=== PATIENT | female | born 1945 | race Caucasian/White ===

== ENCOUNTER 2017-07-09 13:01 | Outpatient (CLI) | payer MEDICARE ==
--- NOTE | 2017-07-09 14:11 | MMO ---
BILATERAL SCREENING MAMMOGRAM: DATE: 07/09/17 HISTORY: 72-year-old female for screening mammography. COMPARISON: 06/18/16, 06/13/15, 06/09/14. FINDINGS: Bilateral MLO and CC views of the breasts show scattered fibroglandular breast tissue. Benign-appeari ng calcifications are seen in both breasts. There is no evidence of suspicious mass, suspicious clust er of microcalcifications, or area of architectural distortion. Interpretation of this mammogram was performed with the assistance of computer-aided detection. IMPRESSION: BIRADS 2: Benign Finding(s) Annual screening mammography is recommended. POS: [facility]
== END 2017-07-09 13:02 | disposition home or self-care (01) ==
LOC: SCSMAMMO 13:01
PROVIDERS: ATTEND Family Medicine
DX: Z12.31 Encounter for screening mammogram for malignant neoplasm of breast (principal)
CPT/HCPCS: 77067; G0202

== ENCOUNTER 2017-07-15 21:24 | Observation (INO) | payer MEDICARE ==
[2017-07-15] MEDS ORDERED: Ondansetron HCl/PF 4 MG/2 ML Vial ONE (21:45)
[2017-07-15 22:16] LABS: ALT (SGPT) 51 U/L (8-55); AST (SGOT) 58 U/L (5-34); Albumin 4.5 g/dL (3.4-4.8); Alkaline Phosphatase 74 U/L (40-150); Anion Gap 21 mmol/L (10-20); BUN (Urea Nitrogen) 23 mg/dL (9.8-20.1); Bilirubin, Total 1.1 mg/dL (0.2-1.2); Calc. Creatinine Clearance 0 mL/min (70-130); Calcium 10.7 mg/dL (7.8-10.44); Carbon Dioxide 21 mmol/L (23-31); Chloride 100 mmol/L (98-107); Estimated GFR-MDRD 44; Globulin 2.7 g/dL (2.4-3.5); Glucose 157 mg/dL (83-110); Lipase 24 U/L (8-78); Potassium 4.1 mmol/L (3.5-5.1); Protein, Total 7.2 g/dL (6.0-8.3); Sodium 138 mmol/L (136-145)
[2017-07-15 22:21] LABS: Band 7 % (5-11); Hemoglobin 15.1 g/dL (12.0-16.0); Lymphocytes 5 % (21-51); MDiff Complete? YES; Mean Corpuscular HGB CONC 30.4 g/dL (32.0-36.0); Mean Corpuscular Hemoglobin 28.1 pg (27.0-31.0); Mean Corpuscular Volume 92.2 fl (81.0-99.0); Mean Platelet Volume 7.5 fL (7.4-10.4); Monocytes 3 % (0-10); Neutrophil 85 % (42-75); Platelet Count 286 thou/uL (130-400); Red Blood Cell (RBC) Count 5.38 mill/uL (4.20-5.40); White Blood Cell (WBC) Count 16.8 thou/uL (4.8-10.8)
--- NOTE | 2017-07-15 23:22 | CT ---
CT OF THE ABDOMEN AND PELVIS 07/15/17 PROVIDED CLINICAL HISTORY: Nausea and vomiting. FINDINGS: Comparison 09/21/08. The visualized lung bases are free of significant opacity. The solid abdominal organs are suboptimally evaluated without IV contrast but demonstrates an unremar kable unenhanced CT appearance. A mild hiatal hernia is seen. There is diffusely mildly ectatic small bowel which is diffusely fluid filled. There is no evidence f or a focal transition point. There is fluid density seen within the colon as well. There is no inflam matory fat stranding, lymphadenopathy, or free air apparent. There is trace free fluid present within the pelvis. The osseous structures demonstrate no concerning osteoblastic or osteolytic lesions. Degenerative changes are seen. IMPRESSION: Predominantly diffusely ectatic fluid filled small bowel without clear transition zone, and with flui d density seen within the colon, is most suggestive of a enterocolitis. POS: [facility]
[2017-07-15 23:29] LABS: Bilirubin Negative (Negative); Blood, Urine Moderate (Negative); Clarity Clear (Clear); Glucose, Urine (Dipstick) Negative (Negative); Leukocyte Trace (Negative); Nitrite Negative (Negative); Protein, Urine (Dipstick) Negative (Neg-Trace); Specific Gravity, Urine 1.015 (1.005-1.030); Urobilinogen 0.2 mg/dL (0.2-1.0)
[2017-07-15] MEDS ORDERED: Piperacillin/Tazobactam 3.375 GM VIAL ONE (23:41)
[2017-07-15] MEDS ORDERED: Sodium Chloride 0.9% 100 ML ONE (23:41)
[2017-07-15 23:42] LABS: Bacteria/HPF 2+ HPF (None Seen); Hyaline Casts/LPF 0-3 HYALINE CAST LPF (0-3 Hyaline); Squamous Epithelial 0-3 HPF (0-3); WBC/HPF 0-3 HPF (0-3)
[2017-07-15] MEDS ORDERED: Acetaminophen 500 MG TAB ONE (23:49)
[2017-07-16] MEDS ORDERED: Ondansetron HCl/PF 4 MG/2 ML Vial ONE (03:55)
[2017-07-16] MEDS ORDERED: Piperacillin/Tazobactam 3.375 GM VIAL ONE (06:14)
[2017-07-16] MEDS ORDERED: Sodium Chloride 0.9% 100 ML ONE (06:15)
[2017-07-16] MEDS ORDERED: HYDROcodone/Acetaminophen 10/325 mg Tablet PO PRN (09:34)
[2017-07-16] MEDS ORDERED: HYDROcodone/Acetaminophen 5/325 mg Tablet PO PRN (09:34)
[2017-07-16] MEDS ORDERED: Mag-Al 1200 mg/1200 mg/30 ML UDCUP PO PRN (09:34)
[2017-07-16] MEDS ORDERED: hydrALAZINE 20 MG/ML VIAL SLOW IVP PRN (09:34)
[2017-07-16] MEDS ORDERED: Acetaminophen 325 MG TAB PO PRN (09:34)
[2017-07-16] MEDS ORDERED: Ondansetron HCl/PF 4 MG/2 ML Vial IVP PRN (09:34)
[2017-07-16] MEDS: NS 0.9% w/ 20 MEQ KCL 1,000 ML/1,000 ML BAG IV SCH ×2 (10:50→20:20)
--- NOTE | 2017-07-16 11:07 | HP ---
PRIMARY CARE PHYSICIAN: Valentino Chávez M.D. CHIEF COMPLAINT: Nausea and vomiting. HISTORY OF PRESENT ILLNESS: Ms. Sow is a pleasant 72-year-old female that has a history of hyper tension and gastroesophageal reflux disease. She was in her usual state of health until yesterday. She says around noon she thought she was coming down with flu-like symptoms or the flu. She says she felt feverish and was having cough which was nonproductive. Then, she began vomiting and could not stop. She also noted some aching as well and some cramping abdominal pain. She says she was vomitin g so much that she thought she was not going to be able to make it at home and then she began having diarrhea. For this reason, she came to the ER for evaluation. A CT scan of the abdomen was done and it was essentially negative and showed some findings consistent with enteritis and she is being plac ed in observation for this. She also complained of some low-grade fever as well as some chills. She says she has had this before in the past. She says usually she will get it periodically and no one else in the family will get sick. She denies any sick contacts and they all went out to eat at [facility], but no one else in the family was sick. REVIEW OF SYSTEMS: Constitutional: Again, subjective fever as well as chills, no night sweats, no w eight loss. HEENT: No headaches, no dizziness, no visual changes, no sore throat, no rhinorrhea, no neck pain, no adenopathy. Pulmonary: No hemoptysis, no cough, no wheezing. Cardiovascular: No ch est pain or shortness of breath, no PND, no orthopnea. Gastrointestinal: As the history of present illness with the addition of no hematemesis and no melena. Genitourinary: No urinary frequency, hem aturia or hesitancy. Neurologic: No focal weakness, numbness, no seizures. Psychiatric: No sympto ms of anxiety or depression. Skin and Integument: No skin changes. No rash. PAST MEDICAL HISTORY: Significant for hypertension, degenerative joint disease, gastroesophageal ref lux disease, and obesity. PAST SURGICAL HISTORY: She has had a right total knee replacement. ALLERGIES: FLAGYL, LEVAQUIN, MACROBID, SULFA and HIBICLENS. FAMILY HISTORY: Significant for colon cancer and heart disease. SOCIAL HISTORY: She is , has 4 children. She is a nonsmoker, nondrinker. CODE STATUS: FULL CODE. MEDICATIONS: Include cephalexin, Meloxicam p.r.n., amlodipine 5 mg daily, aspirin 81 mg daily, Caltr ate 1200 mg at bedtime, [place] 5/325 q.6 p.r.n., lactobacillus 1 capsule daily, lisinopril 10 mg daily , multivitamin once daily, omeprazole 40 mg daily, and zinc. PHYSICAL EXAMINATION: GENERAL: She is alert and oriented. She appears to be in no acute distress. VITAL SIGNS: Blood pressure was 115/63, heart rate 89, respiratory rate of 22, O2 sat is 94%, temper ature is 98.4. HEENT: Pupils are equal, round, and reactive. Extraocular muscles are intact. Sclerae are anicteri c. Throat: No erythema, no exudates. NECK: No adenopathy, no bruits. LUNGS: Clear. No wheezing, no rales. CARDIOVASCULAR: She has a normal S1, S2. There is no S3 or S4. No murmurs, clicks or rubs. ABDOMEN: Obese, it is soft, nontender, nondistended. Positive for bowel sounds. There is no reboun d or guarding. EXTREMITIES: She has trace pedal edema. NEUROLOGIC: The exam is nonfocal. LABORATORY RESULTS: Sodium is 138, potassium 4.1, chloride is 100, CO2 is 21, BUN of 23, creatinine 1.2, glucose is 157. White blood cell count 16.8, hemoglobin 15.1, hematocrit 49.6, platelet count i s 286. Urinalysis shows trace leukocyte esterase, 2+ bacteria, moderate blood. ASSESSMENT AND PLAN: This is a 72-year-old female who is being placed in observation for severe asim roenteritis. Her creatinine is elevated above her baseline of about 0.8 indicating some degree of ac yenni renal failure and mild metabolic acidosis. She will be placed in observation, started on intrave nous fluids. We will monitor her electrolytes and replace if needed. Lisinopril will be held due to the mild acute renal failure. Since she has so many drug allergies, we will hold off on any empiric antibiotics. At this time, I suspect this is likely viral in origin anyway. Clostridium difficile infection is a possibility since she is on Keflex chronically and stool will be sent for studies and treated accordingly.
[2017-07-16] MEDS: Famotidine 20 MG TAB PO SCH (20:19)
[2017-07-17] MEDS: NS 0.9% w/ 20 MEQ KCL 1,000 ML/1,000 ML BAG IV SCH ×2 (04:20→09:45)
[2017-07-17 05:54] LABS: #Eosinphils 0.1 thou/uL (0.0-0.7); #Lymphocytes 1.1 thou/uL (1.20-3.40); #Monocytes 0.8 thou/uL (0.11-0.59); #Neutrophils 4.4 thou/uL (1.40-6.50); %Basophils 0.4 % (0.0-1.0); %Eosinophils 0.8 % (0.0-10.0); %Lymphocytes 16.8 % (21.0-51.0); %Monocytes 13.1 % (0.0-10.0); %Neutrophils 68.9 % (42.0-75.0); Hemoglobin 12.1 g/dL (12.0-16.0); Mean Corpuscular HGB CONC 31.5 g/dL (32.0-36.0); Mean Corpuscular Hemoglobin 30.6 pg (27.0-31.0); Mean Platelet Volume 9.3 fL (7.4-10.4); Platelet Count 185 thou/uL (130-400); Red Blood Cell (RBC) Count 3.96 mill/uL (4.20-5.40); White Blood Cell (WBC) Count 6.4 thou/uL (4.8-10.8)
[2017-07-17 05:59] LABS: Anion Gap 12 mmol/L (10-20); BUN (Urea Nitrogen) 19 mg/dL (9.8-20.1); Calc. Creatinine Clearance 0 mL/min (70-130); Calcium 8.3 mg/dL (7.8-10.44); Carbon Dioxide 18 mmol/L (23-31); Chloride 115 mmol/L (98-107); Estimated GFR-MDRD 61; Glucose 76 mg/dL (83-110); Potassium 3.7 mmol/L (3.5-5.1); Sodium 141 mmol/L (136-145)
[2017-07-17] MEDS ORDERED: FLU VACC TS2017-18 (>65YR) 0.5 ML SYRINGE IM ONE (08:00)
[2017-07-17 08:20] VITALS: BP 170/73; TEMP 99.2
[2017-07-17] MEDS: Famotidine 20 MG TAB PO SCH (08:41)
[2017-07-17 08:47] VITALS: BMI 33.0
--- NOTE | 2017-07-17 11:58 | PDOC.PN ---
- Subjective Encounter Start Date: 07/17/17 Encounter Start Time: 11:56 Ms. Sow was seen today in follow-up of severe gastroenteritis. She is feeling better this morning. She says she does not have any more nausea or vomiting, and the diarrhea has slowed down. - Objective Resuscitation Status: Resuscitation Status FULL:Full Resuscitation MAR Reviewed: Yes Vital Signs & Weight: Vital Signs (12 hours) Temp Pulse Resp BP BP Pulse Ox 07/17/17 08:41 99.2 F 84 18 07/17/17 08:19 99.2 F 84 18 170/73 H 94 L 07/17/17 04:00 98.5 F 77 18 142/69 H 94 L 07/17/17 00:00 98.1 F 78 18 133/68 94 L Weight Weight 186 lb 3 oz I&O: 07/16/17 07/17/17 07/18/17 06:59 06:59 06:59 Intake Total 2400 Balance 2400 Result Diagrams: 07/17/17 04:46 07/17/17 04:46 Phys Exam - Physical Examination HEENT: PERRLA Respiratory: no wheezing, no rales, no rhonchi, clear to auscultation bilateral Cardiovascular: RRR, no significant murmur, no rub Gastrointestinal: soft, non-tender, positive bowel sounds Musculoskeletal: no edema Dx/Plan (1) Gastroenteritis and colitis, viral Code(s): A08.4 - VIRAL INTESTINAL INFECTION, UNSPECIFIED Status: Acute (2) Dehydration, moderate Code(s): E86.0 - DEHYDRATION Status: Acute (3) Hypertension Code(s): I10 - ESSENTIAL (PRIMARY) HYPERTENSION Status: Chronic - Plan * Ms. Sow has improved overnight, she is stable for discharge home.
--- NOTE | 2017-07-17 17:09 | DIS ---
PRIMARY CARE PHYSICIAN: Dr. Chávez. DATE OF ADMISSION: 07/15/2017 DATE OF DISCHARGE: 07/17/2017 DISCHARGE DISPOSITION: Home. PRIMARY DISCHARGE DIAGNOSES: 1. Gastroenteritis, probable viral. 2. Dehydration, moderate. 3. Hypertension. 4. Obesity with BMI of 31. DISCHARGE MEDICATIONS: She is to resume her previous home medications and these include zinc, vitami n E, A, and C, oral vancomycin and she is still on this. Omeprazole 40 mg daily, multivitamins once daily, Meloxicam 15 mg daily, lisinopril 10 mg daily, lactobacillus 1 capsule daily, [place] 10/325 mg 1-2 tablets q. 4 as needed, cephalexin 250 mg daily if she is still on this, Caltrate 1200 mg at bedt aida, aspirin 81 mg daily, and amlodipine 5 mg daily. PROCEDURES DONE DURING ADMISSION: The patient had a CT scan of the abdomen and pelvis showing predom inantly diffuse ectatic fluid filled small bowel without any clear transition zone suggestive of ente rocolitis. CODE STATUS: FULL CODE. ALLERGIES: CHLORHEXIDINE, LEVOFLOXACIN, METRONIDAZOLE, NITROFURANTOIN, SULFA, and LEVAQUIN. HOSPITAL COURSE: Ms. Sow is a pleasant 72-year-old female, who was brought to the hospital after she was having severe nausea, vomiting, and diarrhea. She says her symptoms were so bad she was not going to be able to make it at home. She was placed in observation and stool studies were done whic h were negative for C. diff or campylobacter etc., suspected that she had a viral gastroenteritis. T he following day, her symptoms began to resolve and she was subsequently able to be discharged home w ith close outpatient followup.
== END 2017-07-17 13:15 | disposition home or self-care (01) ==
LOC: SCSER 21:24 → ERHOLD 22:35 → 3SE 07-16 08:05 → T4-B 07-16 19:02
PROVIDERS: ADMIT Internal Medicine; ATTEND Internal Medicine
DX: A08.4 Viral intestinal infection, unspecified (principal); E86.0 Dehydration; I10 Essential (primary) hypertension; K21.9 Gastro-esophageal reflux disease without esophagitis; M19.90 Unspecified osteoarthritis, unspecified site; E66.9 Obesity, unspecified; Z68.31 Body mass index [BMI] 31.0-31.9, adult; Z88.1 Allergy status to other antibiotic agents; Z88.2 Allergy status to sulfonamides; Z88.8 Allergy status to other drugs, medicaments and biological substances; Z79.82 Long term (current) use of aspirin; Z79.899 Other long term (current) drug therapy
CPT/HCPCS: 51701; 74176; 80048; 80053; 83605; 83630; 83690; 85025 ×2; 87324; 87328; 87329; 87449 ×2; 87899 ×2; 94760; 96361 ×4; 96365; 96366; 96375; 96376; 97139 ×2; 99285; G0378 ×3; 36415; 81003; 81015; A4353; J2405; J2543; J7050

== ENCOUNTER 2017-10-14 14:03 | Outpatient (CLI) | payer MEDICARE ==
[2017-10-14 15:42] LABS: Hemoglobin 12.5 g/dL (12.0-16.0); Mean Corpuscular HGB CONC 32.6 g/dL (32.0-36.0); Mean Corpuscular Hemoglobin 31.1 pg (27.0-31.0); Mean Corpuscular Volume 95.6 fl (81.0-99.0); Mean Platelet Volume 8.8 fL (7.4-10.4); Platelet Count 287 thou/uL (130-400); RBC Distribution Width 14.7 % (11.5-14.5); White Blood Cell (WBC) Count 5.6 thou/uL (4.8-10.8)
[2017-10-14 15:43] LABS: Bilirubin Negative (Negative); Blood, Urine Small (Negative); Clarity CLOUDY (Clear); Glucose, Urine (Dipstick) Negative (Negative); Leukocyte Large (Negative); Nitrite Negative (Negative); Protein, Urine (Dipstick) Negative (Neg-Trace); Urobilinogen 0.2 mg/dL (0.2-1.0)
[2017-10-14 15:48] LABS: INR-International Normal Ratio 0.9; Prothrombin Time 12.4 SEC (12.0-14.7)
[2017-10-14 15:53] LABS: Bacteria/HPF 2+ HPF (None Seen); Hyaline Casts/LPF 0-3 HYALINE CAST LPF (0-3 Hyaline); Pathc Cast-AUWi Flag 0.27 (0-2.49); Squamous Epithelial None Seen HPF (0-3)
[2017-10-14 16:05] LABS: Anion Gap 12 mmol/L (10-20); BUN (Urea Nitrogen) 18 mg/dL (9.8-20.1); Calc. Creatinine Clearance 0 mL/min (70-130); Carbon Dioxide 22 mmol/L (23-31); Chloride 107 mmol/L (98-107); Estimated GFR-MDRD 62; Glucose 110 mg/dL (83-110); Potassium 4.3 mmol/L (3.5-5.1); Sodium 137 mmol/L (136-145)
[2017-10-14 16:08] LABS: Trichomonas/HPF None Seen HPF (None Seen); Yeast-All Forms None Seen HPF (None Seen)
== END 2017-10-14 14:04 | disposition home or self-care (01) ==
LOC: LABBT 14:03
PROVIDERS: ATTEND Orthopaedic Surgery
DX: Z01.818 Encounter for other preprocedural examination (principal); M17.12 Unilateral primary osteoarthritis, left knee
CPT/HCPCS: 80048; 81001; 85027; 85610; 86850; 86900; 86901; 87077; 87081; 87086; 87186; 93005; 93010

== ENCOUNTER 2017-10-20 05:25 | Day surgery (SDC) | payer MEDICARE ==
--- NOTE | 2017-10-16 10:09 | HP ---
HISTORY OF PRESENT ILLNESS: The patient is a 72-year-old female with a long history of progressive p ost-traumatic degenerative arthritis of both knees, unresponsive to conservative treatment. She unde rwent arthroscopic evaluation 7-8 years ago, initially had good results. Following meniscectomy page loped progressive problems despite rest, restriction of activities, and anti-inflammatory medications . She underwent right total knee replacement in 02/2017 with good results. She continues to have pr ogressive problems with the left knee and is admitted at this time for left total knee replacement. PAST MEDICAL HISTORY: Please see the old chart. The patient has history of hypertension, uterine ca ncer in remission, reflux, urinary frequency, and recurrent urinary tract infections. CURRENT MEDICATIONS: Include low-dose aspirin, lisinopril, amlodipine, cephalexin once a day, Meloxi cam, omeprazole, multivitamins. ALLERGIES: She is allergic to FLAGYL, LEVAQUIN, NITROFURANTOIN, SULFA, CHLORHEXIDINE/HIBICLENS. FAMILY HISTORY/SOCIAL HISTORY/REVIEW OF SYSTEMS: Otherwise, unremarkable other than the patient does have a special needs adult child lives with her and her and has poor vision and will be unab le to help her in the immediate postoperative period. PHYSICAL EXAMINATION: GENERAL: Shows an elderly healthy female. HEENT: Unremarkable. NECK: Supple. CHEST: Clear. HEART: Regular rate and rhythm. ABDOMEN: Soft, nontender. PELVIC/RECTAL/BREAST: Exams are deferred. EXTREMITIES: Pertinent findings related to the left knee. There is trace effusion. There is modera te varus. There is tenderness and crepitus over the medial joint line. There are healed arthroscopy puncture sites. Range of motion is 5-105 degrees. There is no instability. There is a left antalg ic gait. Pulses are 1+. Neurovascular exam is intact. LABORATORY AND X-RAY FINDINGS: X-rays of the left knee reveal bone on bone collapse medially. IMPRESSION: 1. Posttraumatic degenerative arthritis, left knee. 2. Status post right total knee replacement. 3. History of hypertension. 4. History of recurrent urinary tract infections. 5. History of uterine cancer in remission. PLAN: Left total knee replacement. The nature of the surgery, length of recovery, and potential com plications such as infection, loss of motion, incomplete relief, delayed wound healing, neurovascular injury, thromboembolic phenomena, possible transfusion, and need for revision have been discussed in detail. Because of her home situation with a special needs child and her with poor vision I think she will require a longer than usual hospital stay. She may require fpc or inpati ent rehabilitation following recovery.
[2017-10-20] MEDS ORDERED: Lidocaine 1% (PF) 30 ML VIAL ONE (06:18)
[2017-10-20] MEDS ORDERED: Fentanyl 100 MCG/2 ML VIAL ONE ×2 (06:18→09:31)
[2017-10-20] MEDS ORDERED: Midazolam HCl 2 mg/2 ml Vial ONE (06:18)
[2017-10-20] MEDS ORDERED: CEFAZOLIN/Water 2 GM/20 ML SYRINGE ONE (06:25)
[2017-10-20] MEDS ORDERED: Bupivacaine/Epinephrine 0.25% 30 ML VIAL ONE ×2 (06:29→15:31)
[2017-10-20] MEDS ORDERED: Lidocaine 1% w/Epinephrine 1:200K 30 ML VIAL ONE (06:29)
[2017-10-20] MEDS ORDERED: Vancomycin HCl 1.5 GM in Sodium Chloride 0.9% 250 ML 300 ML IVPB SCH (06:30)
[2017-10-20] MEDS ORDERED: Scopolamine 1.5 mg/72 hour Patch ONE (06:36)
[2017-10-20] MEDS ORDERED: Promethazine HCl 25 MG/ML VIAL IM PRN ×2 (07:12→08:50)
[2017-10-20] MEDS ORDERED: Ketorolac Tromethamine 30 MG/ML VIAL IVP PRN (07:12)
[2017-10-20] MEDS ORDERED: traMADol HCl 50 MG TAB PO PRN ×3 (07:12→10:12)
[2017-10-20] MEDS ORDERED: HYDROcodone/Acetaminophen 5/325 mg Tablet PO PRN (07:12)
[2017-10-20] MEDS ORDERED: Ondansetron HCl/PF 4 MG/2 ML Vial IVP PRN ×3 (07:12→10:12)
[2017-10-20] MEDS ORDERED: Zolpidem Tartrate 5 MG TAB PO PRN ×2 (07:12→10:12)
[2017-10-20] MEDS ORDERED: Bupivacaine 0.5% 50 ML in Sodium Chloride 0.9% 50 ML NERVE BLCK SCH (07:12)
[2017-10-20] MEDS ORDERED: Fentanyl 100 MCG/2 ML VIAL IV PRN (07:13)
[2017-10-20] MEDS ORDERED: Metoclopramide HCl 10 MG/2 ML VIAL ONE ×2 (07:31→15:53)
[2017-10-20] MEDS ORDERED: Promethazine HCl 25 MG/ML VIAL SLOW IVP PRN ×2 (08:50→10:12)
[2017-10-20] MEDS ORDERED: Tranexamic Acid 1,000 MG in Sodium Chloride 0.9% 100 ML IVPB SCH ×2 (09:15→10:12)
--- NOTE | 2017-10-20 09:36 | OP ---
DATE OF PROCEDURE: 10/20/2017 SURGEON: Vicente Elmore M.D. INTERLOCKING MACHINE OPERATOR: POLA Clifford. ANESTHESIA: General plus femoral sciatic nerve blocks. PREOPERATIVE DIAGNOSIS: Degenerative arthritis, left knee. POSTOPERATIVE DIAGNOSIS: Degenerative arthritis, left knee. PROCEDURES: Left total knee replacement with computer-assisted navigation with cemented [place] Tria thlon components (#4 femoral component, #4 universal tibial baseplate with 11 mm CS plastic insert, a nd A29 all plastic patellar component). NARRATIVE REPORT: After satisfactory anesthesia was induced in supine position, sequential compressi on device was placed on the non-operative leg throughout the procedure. The patient's left leg was t hen prepped and draped in the routine sterile fashion. Left leg was elevated, an Esmarch bandage and tourniquet inflated to 300 mmHg. A gently curved medial parapatellar incision was made and carried down to subcutaneous tissues. Bleeding points controlled with Bovie cautery. Medial parapatellar ar throtomy was performed, patella dislocated laterally and portions of the fat pad were excised for exp osure. There was marked degenerative arthritis of the knee, especially medially, with large areas of exposed bone. Meniscal remnants and osteophytes were removed. Using the Zentact pinless navigation system and the appropriate guides, the distal femoral and proximal tibial articular surfaces were ex cised with an oscillating saw to accept the trial components. It was felt that a #4 femoral componen t and #4 tibial baseplate with a 9 mm CS plastic insert gave appropriate size, fit, stability, and co rrection of the preoperative deformity. The patellar articular surface was excised to accept an all plastic A29 patellar component. There was good range of motion, good patellar tracking. The trial c omponents were removed. The knee was copiously irrigated with pulsatile lavage and bony surfaces tho roughly cleaned and dried. The permanent component was then cemented in a single stage using 1 packa ge of cement premixed with 1 gram of tobramycin powder. Excess cement was removed. There was again good fit and stability of the components. The skin was infiltrated with 30 mL of 0.25% Marcaine with epinephrine. The knee was again copiously irrigated. The medial retinaculum and quadriceps mechani sm was closed with interrupted #2 Vicryl and a running #2 Quill. Subcutaneous tissues were closed wi th a running 0 Quill suture and the skin closed with a running subcuticular 3-0 Monoderm and SurgiSea l skin adhesive. Sterile bulky compressive dressing was applied and the tourniquet deflated after 72 minutes. The foot promptly pinked up. Sequential compression device was placed on the operated leg and she was awakened, taken to recovery room in stable condition. There were no apparent intraopera tive complications. The estimated blood loss was less than 100 mL.
[2017-10-20] MEDS ORDERED: Fentanyl 100 MCG/2 ML VIAL SLOW IVP PRN ×2 (10:12)
[2017-10-20] MEDS ORDERED: Amlodipine 5 MG TAB PO SCH ×2 (10:12→10:45)
[2017-10-20] MEDS ORDERED: Ferrous Gluconate 324 MG TAB PO SCH ×2 (10:12→10:45)
[2017-10-20] MEDS ORDERED: Acetaminophen 325 MG TAB PO PRN (10:12)
[2017-10-20] MEDS ORDERED: Non-Formulary Item 1 EACH (Omeprazole [Omeprazole] 40 MG) PO SCH (10:12)
[2017-10-20] MEDS ORDERED: Multivitamin W/ Minerals 1 TAB PO SCH ×2 (10:12→10:45)
[2017-10-20] MEDS ORDERED: HYDROcodone/Acetaminophen 10/325 mg Tablet PO PRN ×2 (10:12)
[2017-10-20] MEDS ORDERED: Lisinopril 10 MG TAB PO SCH ×2 (10:12→10:45)
[2017-10-20] MEDS ORDERED: Aspirin 81 mg Enteric Coated Tablet PO SCH ×2 (10:12→10:45)
[2017-10-20] MEDS ORDERED: diphenhydrAMINE 25 MG CAP PO PRN (10:12)
[2017-10-20] MEDS ORDERED: Senokot S 8.6-50 MG TAB PO SCH ×2 (10:12→10:45)
[2017-10-20 10:14] VITALS: BMI 35.2
[2017-10-20] MEDS: Sodium Chloride 0.9% 1,000 ML IV SCH ×2 (11:08→13:14)
[2017-10-20] MEDS: Vancomycin HCl 1.5 GM in Sodium Chloride 0.9% 250 ML 300 ML IVPB SCH ×2 (11:10→22:08)
[2017-10-20] MEDS: Ketorolac Tromethamine 30 MG/ML VIAL IVP SCH ×2 (11:27→22:07)
--- NOTE | 2017-10-20 11:44 | RAD ---
TWO VIEWS OF THE LEFT KNEE: 10/20/2017 COMPARISON: None. HISTORY: Evaluate knee following arthroplasty. FINDINGS: Postoperative gas and fluid noted within the left knee joint/suprapatellar bursa. There is a tibial and femoral component present consistent with a recent total knee arthroplasty. No acute fracture or dislocation. IMPRESSION: Status post left total knee arthroplasty. POS: [facility]
[2017-10-20] MEDS: CEFAZOLIN/Water 2 GM/20 ML SYRINGE SLOW IVP SCH ×2 (13:18→21:59)
[2017-10-20] MEDS ORDERED: Bupivacaine HCl 0.5%/Epinephrine 1:200,000/PF 30 ml Vial ONE (15:31)
[2017-10-20] MEDS ORDERED: PROPOFOL 200 MG/20 ML VIAL ONE (15:53)
[2017-10-20] MEDS ORDERED: Dexamethasone 20 MG/5 ML VIAL ONE (15:53)
[2017-10-20] MEDS ORDERED: Lidocaine 1% PF 5 ML VIAL ONE (15:53)
[2017-10-20] MEDS ORDERED: ePHEDrine/0.9% NaCl/PF SYRINGE 50 mg/10 ml ONE (15:53)
[2017-10-20] MEDS ORDERED: Ondansetron HCl/PF 4 MG/2 ML Vial ONE (15:53)
[2017-10-20] MEDS ORDERED: Non-Formulary Item 1 EACH (Lactobacillus Acidophilus [Probiotic] 1 CAPSULE) PO SCH (21:00)
[2017-10-20] MEDS: Calcium Carbonate 600 MG TAB PO SCH (21:58)
[2017-10-20] MEDS: Lactinex Tablet PO SCH (21:58)
[2017-10-20] MEDS: Ferrous Gluconate 324 MG TAB PO SCH (21:59)
[2017-10-20] MEDS: Aspirin 81 mg Enteric Coated Tablet PO SCH (21:59)
[2017-10-20] MEDS: Senokot S 8.6-50 MG TAB PO SCH (21:59)
[2017-10-21] MEDS: Sodium Chloride 0.9% 1,000 ML IV SCH ×2 (05:12→09:50)
[2017-10-21] MEDS: Ketorolac Tromethamine 30 MG/ML VIAL IVP SCH ×3 (05:15→21:04)
[2017-10-21] MEDS: HYDROcodone/Acetaminophen 5/325 mg Tablet PO PRN ×3 (05:20→13:39)
[2017-10-21 06:11] LABS: Hemoglobin 10.8 g/dL (12.0-16.0); Mean Corpuscular HGB CONC 32.6 g/dL (32.0-36.0); Mean Corpuscular Hemoglobin 30.6 pg (27.0-31.0); Platelet Count 219 thou/uL (130-400); RBC Distribution Width 14.4 % (11.5-14.5); Red Blood Cell (RBC) Count 3.52 mill/uL (4.20-5.40); White Blood Cell (WBC) Count 11.3 thou/uL (4.8-10.8)
[2017-10-21] MEDS: Ferrous Gluconate 324 MG TAB PO SCH ×2 (09:12→21:03)
[2017-10-21] MEDS: Lisinopril 10 MG TAB PO SCH (09:12)
[2017-10-21] MEDS: Multivitamin W/ Minerals 1 TAB PO SCH (09:12)
[2017-10-21] MEDS: Aspirin 81 mg Enteric Coated Tablet PO SCH ×2 (09:13→21:03)
[2017-10-21] MEDS: Amlodipine 5 MG TAB PO SCH (09:13)
[2017-10-21] MEDS: Senokot S 8.6-50 MG TAB PO SCH ×2 (09:15→21:04)
[2017-10-21] MEDS: Vancomycin HCl 1.5 GM in Sodium Chloride 0.9% 250 ML 300 ML IVPB SCH ×2 (11:23→23:46)
--- NOTE | 2017-10-21 12:59 | PRG ---
DATE OF SERVICE: 10/21/2017 SUBJECTIVE: Ms. Boothe is a 72-year-old white female, postop day #1 from left total knee arthroplast y. She did relatively well today. Her pain is relatively well controlled with the indwelling cathet er and oral pain medicines. She struggled with therapy this morning. She was unable to gait, but sh e was able to stand at the bedside with minimal assistance, but unable to walk away from the bed. OBJECTIVE: VITAL SIGNS: Temperature 98.6, pulse 70, respiratory rate 18, O2 saturation on room air is 93% to 95 % on 3 liters nasal cannula and blood pressure is 131/68 currently. GENERAL: She is an alert and oriented to person, place, time and situation. Grossly nonfocal, appro priate with the examiner. LABORATORY DATA: Hemoglobin and hematocrit 10.8 and 33. Incision is clean and closed, and no erythe ma. She is neurovascularly intact in the involved extremity. ASSESSMENT: A 72-year-old female, postoperative day #1 left total knee arthroplasty, doing well in t erms of pain, very slow in terms of gait and independent activity. PLAN: Continue therapy, but she may very well require a skilled placement depending on how well she does in afternoon therapy. We will hold discharge until tomorrow depending on her improvement with A DLs.
[2017-10-21] MEDS: Calcium Carbonate 600 MG TAB PO SCH (21:03)
[2017-10-21] MEDS: Lactinex Tablet PO SCH (21:04)
[2017-10-21 22:46] LABS: Vancomycin, Trough 25.1 ug/mL
[2017-10-22] MEDS: Sodium Chloride 0.9% 1,000 ML IV SCH ×2 (03:12→18:29)
[2017-10-22] MEDS: Ketorolac Tromethamine 30 MG/ML VIAL IVP SCH ×2 (05:43→18:28)
[2017-10-22] MEDS: HYDROcodone/Acetaminophen 5/325 mg Tablet PO PRN ×2 (05:45→09:22)
[2017-10-22] MEDS: Senokot S 8.6-50 MG TAB PO SCH (09:22)
[2017-10-22] MEDS: Ferrous Gluconate 324 MG TAB PO SCH (09:22)
[2017-10-22] MEDS: Multivitamin W/ Minerals 1 TAB PO SCH (09:24)
[2017-10-22] MEDS: Amlodipine 5 MG TAB PO SCH (09:24)
[2017-10-22] MEDS: Lisinopril 10 MG TAB PO SCH (09:24)
[2017-10-22] MEDS: Aspirin 81 mg Enteric Coated Tablet PO SCH (09:24)
[2017-10-22 12:01] VITALS: BP 117/63; TEMP 97.8
[2017-10-22] MEDS: Vancomycin HCl 1.5 GM in Sodium Chloride 0.9% 250 ML 300 ML IVPB SCH (12:10)
--- NOTE | 2017-10-23 15:05 | DIS ---
DATE OF ADMISSION: 10/20/2017 DATE OF DISCHARGE: 10/22/2017 ADMISISON DIAGNOSIS: End-stage tricompartmental osteoarthritis, left knee. DISCHARGE DIAGNOSIS: End-stage tricompartmental osteoarthritis, left knee. OPERATIVE PROCEDURE: Left total knee arthroplasty. CONSULTANTS: [facility] for acute postop pain management. BRIEF CLINICAL HISTORY: The patient was admitted to [facility] and underwent the above elective procedure on the date of admission without intra, tennille, or postoperative complicat ion. The hospital course was unremarkable. At the time of discharge, the patient is afebrile, ambul atory without assistance utilizing a rolling walker in a full weightbearing fashion, tolerating a reg ular diet, and voiding without difficulty. The patient's incision is clean and closed without any er ythema. DISCHARGE MEDICATIONS: Please see medication reconciliation form. We will be happy to see the patie nt on an as needed basis between now and her next scheduled appointment. CONDITION ON DISCHARGE: Stable. PROGNOSIS: Good.
== END 2017-10-22 16:31 | disposition home or self-care (01) ==
LOC: SDC 05:25 → SJJU 07:36 → EDSTATUS 09:15 → SDC 10-22 16:31
PROVIDERS: ATTEND Orthopaedic Surgery
PROC: 0SRD0J9 Replacement of Left Knee Joint with Synthetic Substitute, Cemented, Open Approach (ICD-10-PCS; principal; 2017-10-20)
PROC: 8E0YXBZ Computer Assisted Procedure of Lower Extremity (ICD-10-PCS; 2017-10-20)
DX: M17.12 Unilateral primary osteoarthritis, left knee (principal); I10 Essential (primary) hypertension; K21.9 Gastro-esophageal reflux disease without esophagitis; Z88.2 Allergy status to sulfonamides; Z88.1 Allergy status to other antibiotic agents; Z88.8 Allergy status to other drugs, medicaments and biological substances; Z79.82 Long term (current) use of aspirin; Z79.2 Long term (current) use of antibiotics; Z98.890 Other specified postprocedural states; Z96.651 Presence of right artificial knee joint
CPT/HCPCS: 20985; 27447; 73560; 80202; 85027; 97110; 97116 ×2; 97139 ×4; 97150; 97530; C1713; C1776; G8978; G8979; 36415; J0670; J1100; J1885; J2001; J2250; J2405; J2704; J2765; J3010; J3370; J3490; J7050

== ENCOUNTER 2017-12-04 10:10 | Outpatient (CLI) | payer MEDICARE ==
[2017-12-04 11:04] LABS: Anion Gap 13 mmol/L (10-20); BUN (Urea Nitrogen) 17 mg/dL (9.8-20.1); Calc. Creatinine Clearance 0 mL/min (70-130); Calcium 9.5 mg/dL (7.8-10.44); Carbon Dioxide 26 mmol/L (23-31); Chloride 105 mmol/L (98-107); Estimated GFR-MDRD 47; Glucose 97 mg/dL (83-110); Potassium 4.7 mmol/L (3.5-5.1); Sodium 139 mmol/L (136-145)
--- NOTE | 2017-12-04 11:31 | ULT ---
BILATERAL RENAL ULTRASOUND: Date: 12/04/17 COMPARISON: 09/27/16. HISTORY: Incomplete emptying. TECHNIQUE: Sagittal and transverse imaging of the kidneys performed. FINDINGS: There is bilateral renal cortical thinning. No hydronephrosis. Right kidney measures 9.9 x 4.5 x 4.4 cm. Left kidney measures 10.6 x 5.3 x 5.5 cm. Normal urinary bladder mucosa. Pre-void volume is 642 mL. Post-void volume is 475 mL. IMPRESSION: 1. Significant post-void residual. 2. Bilateral renal cortical thinning. No hydronephrosis. POS: [facility]
== END 2017-12-04 10:11 | disposition home or self-care (01) ==
LOC: SCSULT 10:10
PROVIDERS: ATTEND Urology
DX: R39.14 Feeling of incomplete bladder emptying (principal); N28.89 Other specified disorders of kidney and ureter
CPT/HCPCS: 36415; 76770; 80048

== ENCOUNTER 2017-12-26 15:22 | Outpatient (CLI) | payer MEDICARE ==
--- NOTE | 2017-12-26 16:41 | MRI ---
LUMBAR SPINE MRI WITHOUT CONTRAST 12/26/17 HISTORY: Spinal stenosis. Neurogenic claudication. COMPARISON: None. TECHNIQUE: Lumbar spine MRI is performed without intravenous gadolinium administration. Multisequential, multipl marci imaging is performed. FINDINGS: Appropriate T1 marrow signal intensity in the lumbar vertebrae. Lumbar spine vertebral body height is maintained. There is no fracture. There is 7.1 mm of anterolisthesis of L4 upon L5, 4.2 mm retrolist hesis of L5 upon S1. There are type I-II Modic change at L5-S1. No significant STIR hyperintensity to suggest vertebral body edema or ligamentous injury. The conus medullaris terminates at the T12-L1 disc space level. The visualized solid organs are unremarkable. Symmetric signal intensity of the psoas muscles. T12-L1: Adequate disc hydration. No significant central canal stenosis. Neural foramina are patent. L1-L2: Adequate disc hydration. A small left paracentral disc bulge. Minimal central canal stenosis. Neural foramina are patent. L2-L3: Minimal loss of disc space height. Generalized disc bulge, ligamentum flavum thickening and fa cet hypertrophy are noted. Mild central canal stenosis. Bilaterally, neural foramina are patent. L3-L4: Desiccation with moderate loss of disc space height. There is a broad based disc bulge with di sc material in the right subarticular zone as well as in the right neural foramen. There is ligamentu m flavum thickening and facet hypertrophy. Moderate central canal stenosis. Partial obscuration of th e traversing right L4 nerve root due to disc material. Moderate right neural foraminal narrowing. Mil d left foraminal narrowing. L4-L5: Desiccation with moderate loss of disc space height. Broad based disc bulge, ligamentum flavum thickening and facet hypertrophy results in severe central canal stenosis. Moderate right and mild t o moderate left foraminal narrowing. L5-S1: Desiccation with mild loss of disc space height. There is a generalized disc bulge with disc m aterial encroaching upon the left subarticular zone. Partial obscuration of the traversing left S1 ne rve root. No significant stenosis of the thecal sac. Mild right and moderate left neural foraminal na rrowing. IMPRESSION: 1. Degenerative changes of the lumbar spine as above. There is severe central canal stenosis at L4-L5. 2. Narrowing of the left subarticular zone at L5-S1 with partial obscuration of traversing left S1 nerve root. 3. Significant right foraminal narrowing at L3-L4 due to disc material. POS: [facility]
== END 2017-12-26 15:23 | disposition home or self-care (01) ==
LOC: SCSMRI 15:22
PROVIDERS: ATTEND Nurse Practitioner Family
DX: M48.062 Spinal stenosis, lumbar region with neurogenic claudication (principal); M47.896 Other spondylosis, lumbar region; M99.83 Other biomechanical lesions of lumbar region
CPT/HCPCS: 72148

== ENCOUNTER 2018-06-02 10:45 | Outpatient (CLI) | payer MEDICARE ==
[2018-06-02 12:20] LABS: Hemoglobin 13.5 g/dL (12.0-16.0); Mean Corpuscular HGB CONC 31.4 g/dL (32.0-36.0); Mean Corpuscular Volume 95.5 fL (78.0-98.0); Mean Platelet Volume 9.1 fL (7.4-10.4); Platelet Count 284 thou/uL (130-400); RBC Distribution Width 15.1 % (11.5-14.5); Red Blood Cell (RBC) Count 4.48 mill/uL (4.20-5.40); White Blood Cell (WBC) Count 5.6 thou/uL (4.8-10.8)
[2018-06-02 12:27] LABS: INR-International Normal Ratio 0.9; PTT 26.6 SEC (22.9-36.1); Prothrombin Time 11.9 SEC (12.0-14.7)
[2018-06-02 12:51] LABS: Anion Gap 13 mmol/L (10-20); BUN (Urea Nitrogen) 18 mg/dL (9.8-20.1); Calc. Creatinine Clearance 0 mL/min (70-130); Calcium 9.4 mg/dL (7.8-10.44); Carbon Dioxide 22 mmol/L (23-31); Chloride 105 mmol/L (98-107); Estimated GFR-MDRD 56; Glucose 85 mg/dL (83-110); Potassium 4.5 mmol/L (3.5-5.1); Sodium 135 mmol/L (136-145)
== END 2018-06-02 10:46 | disposition home or self-care (01) ==
LOC: LABBT 10:45
PROVIDERS: ATTEND Surgery
DX: Z01.818 Encounter for other preprocedural examination (principal); M48.061 Spinal stenosis, lumbar region without neurogenic claudication; M54.16 Radiculopathy, lumbar region
CPT/HCPCS: 80048; 85027; 85610; 85730; 93005; 93010

== ENCOUNTER → 2018-06-09 | Day surgery (SDC) | payer MEDICARE ==
[2018-06-02 11:10] VITALS: BMI 32.4
[~2018-06-09] MED LIST: Acetaminophen 325 MG TAB PO PRN; Acetaminophen/Codeine 30-300mg Tablet PO PRN; Bacitracin Zinc Ointment 30 gm TUBE ONE; Bisacodyl 10 MG SUPP PR PRN; CEFAZOLIN 2 GM/50 ML BAG ONE; Dexamethasone 20 MG/5 ML VIAL ONE; Fentanyl 100 MCG/2 ML VIAL ONE; Fleet Enema 133 ML BOT PR PRN; Glycopyrrolate 0.2 MG/ML 5 ML SYRINGE ONE; HYDROcodone/Acetaminophen 7.5/325 mg Tablet PO PRN; Ibuprofen 200 MG TAB PO PRN; Lidocaine 1% PF 5 ML VIAL ONE; Mag-Al 1200 mg/1200 mg/30 ML UDCUP PO PRN; Milk Of Magnesia 30 ML UDCUP PO PRN; Morphine 2 MG/ML SYRINGE ONE; Morphine 4 MG/ML VIAL ONE; Morphine 4 MG/ML VIAL SLOW IVP PRN; Morphine Sulfate 2 MG/ML SYRINGE SLOW IVP PRN; Non-Formulary Medication 1 EACH PO PRN; Ondansetron HCl/PF 4 MG/2 ML Vial IVP PRN; Ondansetron PF 4 MG/2 ML Vial ONE; PHENYLEPHRINE-NS 100 MCG/ML 10 ML SYRINGE ONE; PROPOFOL 200 MG/20 ML VIAL ONE; Phenylephrine HCL 10 MG/ML VIAL ONE; Promethazine HCl 25 MG/ML VIAL IM PRN; Promethazine HCl 25 MG/ML VIAL IM/IV PRN; Promethazine HCl 25 MG/ML VIAL ONE; Sodium Chloride 0.9% 1,000 ML IV SCH; Sodium Chloride 0.9% 10 ML ONE; Thrombin 5000 UNITS/5 ML VIAL ONE; traMADol HCl 50 MG TAB PO PRN
[2018-06-09] MEDS: Sodium Chloride 0.9% 1,000 ML IV SCH (21:00)
[2018-06-09] MEDS: Lactinex Tablet PO SCH (21:01)
[2018-06-09] MEDS: Calcium Carbonate 600 MG TAB PO SCH (21:01)
[2018-06-09] MEDS: CEFAZOLIN 2 GM/50 ML BAG IVPB SCH (21:02)
--- NOTE | 2018-06-09 23:03 | OP ---
DATE OF PROCEDURE: 06/09/2018 OR: 12 WOUND TYPE: Type 1 wound. SURGEON: Mk Wood M.D. SENIOR BACK END JAVA DEVELOPER: Kyler Gregory PA-C. PREPROCEDURE DIAGNOSES: Multilevel lumbar stenosis with low back and leg pain and lumbar spondylolis thesis. POSTPROCEDURE DIAGNOSES: Multilevel lumbar stenosis with low back and leg pain and lumbar spondyloli sthesis. PROCEDURES: 1. L3-L4, L4-L5, L5-S1 laminectomies, partial facetectomy and foraminotomies L3, L4, L5, S1 nerve ro ots. 2. Right L3-L4 diskectomy. 3. Use of operative microscope for microdissection. 4. In situ fusion L4-L5 to treat spondylolisthesis with use of local bone autograft obtained from e same incision and allograft. DESCRIPTION OF PROCEDURE: After informed consent was obtained from the patient, the patient was brou ght to OR 12. Proper patient pause and identification was carried out. She was placed in excellent general endotracheal anesthesia and positioned prone on the OR table. All appropriate points were pa dded. We identified the L3, L4, L5, S1 dorsal spines. A linear lopez was made over this region. Thi s area was sterilely cleansed, prepared and draped. Proper patient pause and identification was kemp ied out. The wound was then opened with a combination of sharp, monopolar and blunt dissection and t he L3, L4, L5 and S1 dorsal spines and lamina were exposed along with the facet complexes at L4-L5 fo r posterolateral arthrodesis. A localization film confirmed our area of interest. We then performed L3, L4, L5, S1 laminectomies, partial facetectomy and foraminotomies with excellent decompression of the common dural tube and the L3, L4, L5 and S1 nerve roots bilaterally. We then brought the micros cope in and using microdissection, we worked over the shoulder of the traversing right L4 nerve root and disk material was removed from the right L3-L4 disk space. We had excellent decompression of the traversing right L4 nerve root. We then turned our attention to the arthrodesis and local bone auto graft obtained from the same incision. Allograft was laid over the decorticated posterolateral regio ns at L4-L5 for arthrodesis via in situ fusion. Copious irrigation occurred throughout. We maximize d hemostasis. The wound was then closed in anatomic layers following sprinkle of vancomycin powder. The patient then emerged from anesthesia. There was no spinal fluid leak.
[2018-06-10] MEDS: Morphine 2 MG/ML SYRINGE SLOW IVP PRN ×4 (04:20→14:10)
[2018-06-10] MEDS: tiZANidine HCl 4 MG TAB PO PRN ×2 (04:20→18:30)
[2018-06-10] MEDS: Sodium Chloride 0.9% 1,000 ML IV SCH ×2 (04:21→21:18)
[2018-06-10] MEDS: CEFAZOLIN 2 GM/50 ML BAG IVPB SCH (06:44)
--- NOTE | 2018-06-10 08:56 | PRG ---
DATE OF SERVICE: 06/10/2018 Ms. Sow is postoperative day 1 multilevel lumbar decompression and in situ effusion. She has not yet mobilized and does not notice a difference in her leg symptoms. We had excellent decompression of the common dural tube and neural elements yesterday and I suspect she simply needs time. Neither neurologically nor with her wound have there been any issues. She is on supplemental oxygen. We lan l wean this. We will keep the [place] catheter in and she has longstanding urinary incontinence. We w ill request physiatry services including physiatry evaluation.
[2018-06-10] MEDS: Multivit, Therapeutic 1 TAB PO SCH (09:01)
[2018-06-10] MEDS: Lisinopril 10 MG TAB PO SCH (09:01)
[2018-06-10] MEDS: Amlodipine 5 MG TAB PO SCH (09:02)
[2018-06-10] MEDS: HYDROcodone/Acetaminophen 7.5/325 mg Tablet PO PRN ×2 (16:35→20:21)
[2018-06-10] MEDS: Lactinex Tablet PO SCH (20:20)
[2018-06-10] MEDS: Calcium Carbonate 600 MG TAB PO SCH (20:20)
[2018-06-11] MEDS: Multivit, Therapeutic 1 TAB PO SCH (08:21)
[2018-06-11] MEDS: Sodium Chloride 0.9% 1,000 ML IV SCH (08:22)
[2018-06-11] MEDS: Amlodipine 5 MG TAB PO SCH (08:24)
[2018-06-11] MEDS: Lisinopril 10 MG TAB PO SCH (08:25)
--- NOTE | 2018-06-11 09:20 | CON ---
DATE OF CONSULTATION: 06/11/2018 CONSULTING PHYSICIAN: Dr. Wood REASON FOR CONSULTATION: Perioperative medical management with hypotension. HISTORY OF PRESENT ILLNESS: This patient is a 73-year-old female who underwent a L3-L4, L4-L5, and L 5-S1 laminectomies, partial facetectomy, and foraminotomies at L3-4-5 and S1 nerve roots. She also h ad a right L3-4 diskectomy with fusion at L4-5. The patient subsequently has continued to have some typical postoperative pain. She indicates that she was told today she is going to have to push throu gh some of her postoperative pain a little bit and get moving more. The plan is to move the patient to rehab as soon as she is capable. The only problem she has been experiencing so far is some postop erative hypotension with her pressure dipping as low as 87/48. This morning she is at 96/55. She do es not appear to be terribly symptomatic with these. She does not believe she has had a bowel moveme nt since surgery and is not aware of any flatus either at this point. PAST MEDICAL HISTORY: Notable for hypertension with blood pressure typically in the normal range whe n on medications. She has degenerative joint disease, gastroesophageal reflux, history of shingles w ith postherpetic neuropathy, primarily in the back area. She also has a history of uterine cancer tr eated with external beam radiation therapy and irradiated vaginal implants for 48 hours. PAST SURGICAL HISTORY: Bilateral cartilage repair of the knees, followed by bilateral total knee rep lacements. She has had hemorrhoidectomy, with BTL, appendectomy with a ruptured ovarian cy st drainage as well. FAMILY HISTORY: Father had colon cancer. Mother had hypertension. Her oldest daughter had a benign brain tumor. SOCIAL HISTORY: She is . She is a nonsmoker, nondrinker. CODE STATUS: She is FULL CODE and her would be her surrogate decision maker should that beco me necessary. ALLERGIES: CHLORHEXIDINE, LEVOFLOXACIN, METRONIDAZOLE, NITROFURANTOIN and SULFA. MEDICATIONS: At home; lisinopril 10 mg p.o. daily, probiotic 1 every day, amlodipine 5 mg daily, mul tivitamin 1 every day, calcium 1200 mg at bedtime, aspirin 81 mg b.i.d., Meloxicam 1 p.o. daily. Pr eserVision soft gel 1 every day, and omeprazole 40 mg q.a.m. PHYSICAL EXAMINATION: VITAL SIGNS: Temperature is 98.9, pulse 75, respirations 14, O2 sat 93% on room air, BP this morning was initially 96/55, repeat 108/70. GENERAL APPEARANCE: Age appropriate female, slightly obese. She is noted in no distress. She is aw wilmer, alert, sitting up on the side of her bed eating breakfast quite well. CARDIOVASCULAR: Regular rate and rhythm without murmurs, gallops or rubs. LUNGS: Clear bilaterally with no wheezes or rales. ABDOMEN: Soft, nontender, nondistended, positive bowel sounds, although just slightly diminished. EXTREMITIES: She has no edema. BACK: Her lower back wound is covered with postop dressing. ASSESSMENT AND PLAN: 1. Postop multilevel laminectomy of the lumbar spine with foraminotomies and fusion. I encouraged t he patient to continue using incentive spirometer and get mobile as soon as she can tolerate. 2. Relative hypotension. We will check CBC and a CMP. We will hold her home antihypertensive medic ations for now and continue to monitor. She does not appear to be specifically dehydrated and I susp ect this is specifically a volume issue. May be related to the pain medications that she has been re ceiving as well. 3. History of reflux. Continue with a PPI.
[2018-06-11 10:35] LABS: Hemoglobin 10.5 g/dL (12.0-16.0); Mean Corpuscular HGB CONC 32.2 g/dL (32.0-36.0); Mean Corpuscular Hemoglobin 30.9 pg (27.0-31.0); Mean Corpuscular Volume 95.9 fL (78.0-98.0); Mean Platelet Volume 9.2 fL (7.4-10.4); Platelet Count 229 thou/uL (130-400); RBC Distribution Width 14.8 % (11.5-14.5); White Blood Cell (WBC) Count 10.3 thou/uL (4.8-10.8)
[2018-06-11 10:48] LABS: ALT (SGPT) 10 U/L (8-55); AST (SGOT) 26 U/L (5-34); Albumin 2.8 g/dL (3.4-4.8); Alkaline Phosphatase 59 U/L (40-150); Anion Gap 11 mmol/L (10-20); BUN (Urea Nitrogen) 13 mg/dL (9.8-20.1); Bilirubin, Total 0.9 mg/dL (0.2-1.2); Calc. Creatinine Clearance 57 mL/min (70-130); Calcium 8.7 mg/dL (7.8-10.44); Carbon Dioxide 23 mmol/L (23-31); Chloride 105 mmol/L (98-107); Estimated GFR-MDRD 47; Globulin 2.1 g/dL (2.4-3.5); Glucose 113 mg/dL (83-110); Potassium 3.7 mmol/L (3.5-5.1); Protein, Total 4.9 g/dL (6.0-8.3); Sodium 135 mmol/L (136-145)
--- NOTE | 2018-06-11 11:59 | PRG ---
DATE OF SERVICE: 06/11/2018 SUBJECTIVE: Ms. Ro is postoperative day 2 from multilevel lumbar decompression and in situ fusi on. She has not progressed much in regards to mobilization. She had some episodes of low blood pres sure. We are working on this in regards to fluid resuscitation. Neurologically, she has been at her baseline. We will work on trying to get her moving more.
[2018-06-11 12:15] VITALS: BP 107/59; TEMP 97.7
[2018-06-11 12:41] LABS: Band 28 % (5-11); Lymphocytes 4 % (21-51); MDiff Complete? YES; Metamyelocyte 1 % (0-0); Monocytes 13 % (0-10); Neutrophil 47 % (42-75); PLT Morphology Comment Appears Adequate; Polychromasia SLIGHT = 2-3 cells (100X) (0-2/hpf); Reactive Lymphocytes 7 % (0-10); Toxic Granulation SLIGHT; Vacuoles SLIGHT
== END ==
LOC: SDC 10:24 → SJJU 16:41
PROVIDERS: ATTEND Surgery
PROC: 01NB0ZZ Release Lumbar Nerve, Open Approach (ICD-10-PCS; principal; 2018-06-09)
PROC: 0ST20ZZ Resection of Lumbar Vertebral Disc, Open Approach (ICD-10-PCS; 2018-06-09)
PROC: 0SG0071 Fusion of Lumbar Vertebral Joint with Autologous Tissue Substitute, Posterior Approach, Posterior Column, Open Approach (ICD-10-PCS; 2018-06-09)
DX: M48.061 Spinal stenosis, lumbar region without neurogenic claudication (principal); M43.16 Spondylolisthesis, lumbar region; Z79.1 Long term (current) use of non-steroidal anti-inflammatories (NSAID); Z79.82 Long term (current) use of aspirin; Z79.899 Other long term (current) drug therapy; Z88.1 Allergy status to other antibiotic agents; Z88.2 Allergy status to sulfonamides; Z88.8 Allergy status to other drugs, medicaments and biological substances
CPT/HCPCS: 36416; 76001; G8978-GP-CM; G8979-GP-CK; G8987-GO-CK; G8988-GO-CI; J1100; J2001; J2270; J2370; J2405; J2550; J2704; J3010; J3370; J3490

== ENCOUNTER 2019-01-25 09:15 | Outpatient (CLI) | payer MEDICARE ==
--- NOTE | 2019-01-25 13:07 | CT ---
CT ABDOMEN AND PELVIS WITH IV CONTRAST: Date: 01/25/19 INDICATION: History of vomiting and diarrhea, abdominal pain with bloating. COMPARISON: Prior noncontrast CT of abdomen and pelvis dated 07/15/17. FINDINGS: The lung bases are clear. No focal hepatic lesion is evident. There is a small hiatal hernia. The pancreas, adrenal glands, and kidneys appear within normal limits. There is a small calcified granuloma within the spleen. There is stable mild vascular calcification involving abdominal aorta. No free fluid or enlarged lymph nodes are evident. The visualized bladder, rectum, and perirectal soft tissues are within normal limits. Mild amount of retained stool is seen within the colon. There is diffuse osteopenia. There is levoscoliosis of the lumbar spine. There is scattered degenerat ashley and osteoarthritic change. IMPRESSION: No CT explanation for the patient's abdominal pain, nausea, vomiting, and bloating. POS: CET
== END 2019-01-25 09:16 | disposition home or self-care (01) ==
LOC: SCSCT 09:15
PROVIDERS: ATTEND Physician Assistant Medical
DX: K56.699 Other intestinal obstruction unspecified as to partial versus complete obstruction (principal); R19.4 Change in bowel habit; R10.13 Epigastric pain; R11.2 Nausea with vomiting, unspecified
CPT/HCPCS: 74177; 82565

== ENCOUNTER 2019-02-01 09:58 | Outpatient (CLI) | payer MEDICARE ==
--- NOTE | 2019-02-01 10:53 | ULT ---
Exam: Bilateral renal ultrasound HISTORY: Incomplete bladder emptying. Chronic bladder emptying issues. COMPARISON: 12/04/2017 FINDINGS: Right kidney: Renal cortical thinning. No hydronephrosis. Right kidney measurements: 9.5 x 4.5 x 4.6 cm. Left kidney: Renal cortical thinning. No hydronephrosis Left kidney measurements 6 5.0 x 10.6 x 5.8 cm. Urinary bladder: Patient was unable to urinate after 10 minutes. Prevoid volume was 153 mL. Post void volume is 157 mL. IMPRESSION: 1. No hydronephrosis. 2. Bilateral renal cortical thinning. 3. Inability to evaluate an empty bladder after 10 minute wait.
== END 2019-02-01 09:59 | disposition home or self-care (01) ==
LOC: SCSULT 09:58
PROVIDERS: ATTEND Urology
DX: R39.14 Feeling of incomplete bladder emptying (principal); R35.0 Frequency of micturition; N28.89 Other specified disorders of kidney and ureter
CPT/HCPCS: 76770

== ENCOUNTER 2020-05-09 08:42 | Outpatient (CLI) | payer MEDICARE ==
--- NOTE | 2020-05-09 11:22 | CT ---
CT ABDOMEN AND PELVIS WITHOUT IV CONTRAST: HISTORY: Gross hematuria. COMPARISON: Contrast-enhanced exam of 01/25/2019. FINDINGS: The lung bases are clear. A small hiatal hernia is again seen. No calcified gallstones are noted. No free air is seen. No calculi are seen in the kidneys, ureters, or the urinary bladder. No hydroureteral nephrosis is n oted on either side. There is thickening of the wall of the distended urinary bladder with perivesic ular inflammatory changes. There is a small amount of free fluid in the pelvis. There are calcified granulomas in the spleen. The small bowel loops are not abnormally dilated. The re is fecal material in the colon. There are vascular calcifications without evidence of aneurysmal dilatation of the abdominal aorta. There are degenerative changes in the spine. There is levoscoliosis of the lumbar spine. IMPRESSION: 1. No CT evidence of urinary tract calculi or obstruction. 2. Findings are suspicious for cystitis. Evaluation with cystoscopy would be helpful. 3. Small hiatal hernia. POS: VIDYA
== END 2020-05-09 08:43 | disposition home or self-care (01) ==
LOC: SCSCT 08:42
PROVIDERS: ATTEND Urology
DX: R31.0 Gross hematuria (principal); K44.9 Diaphragmatic hernia without obstruction or gangrene
CPT/HCPCS: 74176; 82565

== ENCOUNTER 2020-10-13 09:33 | Outpatient (CLI) | payer MEDICARE ==
[2020-10-13 13:01] LABS: Anion Gap 16 mmol/L (10-20); BUN (Urea Nitrogen) 27 mg/dL (9.8-20.1); Calc. Creatinine Clearance 0 mL/min (70-130); Calcium 9.7 mg/dL (7.8-10.44); Carbon Dioxide 25 mmol/L (23-31); Chloride 103 mmol/L (98-107); Glucose 99 mg/dL (83-110); Potassium 4.6 mmol/L (3.5-5.1); Sodium 139 mmol/L (136-145)
[2020-10-13 13:07] LABS: Hemoglobin 11.8 g/dL (12.0-15.5); Mean Corpuscular HGB CONC 32.2 g/dL (32.0-36.0); Mean Corpuscular Hemoglobin 30.1 pg (27.0-33.0); Mean Corpuscular Volume 93.6 fl (81.6-98.3); Mean Platelet Volume 11.6 fl (7.4-10.4); Platelet Count 322 10x3/uL (150-450); RBC Distribution Width 17.6 % (11.5-14.5); Red Blood Cell (RBC) Count 3.92 10x6/uL (3.90-5.03); White Blood Cell (WBC) Count 6.4 10x3/uL (3.5-10.5)
[2020-10-13 13:28] LABS: INR-International Normal Ratio 0.9; PTT 24.2 sec (22.0-33.0); Prothrombin Time 9.7 sec (9.5-12.1)
[2020-10-14 03:55] LABS: SARS-CoV-2 PCR by NAA Not Detected (NotDetected)
== END 2020-10-13 09:34 | disposition home or self-care (01) ==
LOC: LABBT 09:33
PROVIDERS: ATTEND Urology
DX: Z01.818 Encounter for other preprocedural examination (principal); N30.40 Irradiation cystitis without hematuria; N39.41 Urge incontinence; R39.14 Feeling of incomplete bladder emptying; R35.0 Frequency of micturition; R33.9 Retention of urine, unspecified; R31.0 Gross hematuria; N28.9 Disorder of kidney and ureter, unspecified; I10 Essential (primary) hypertension; Z20.822 Contact with and (suspected) exposure to COVID-19; Z87.440 Personal history of urinary (tract) infections; R30.0 Dysuria
CPT/HCPCS: 80048; 81001; 85027; 85610; 85730; 87077; 87086; 87186; 93005; U0003; U0005; 87635; 93010

== ENCOUNTER 2020-10-18 07:54 | Day surgery (SDC) | payer MEDICARE ==
[~2020-10-18 07:54] MED LIST changes: -Acetaminophen 325 MG TAB PO PRN; -Acetaminophen/Codeine 30-300mg Tablet PO PRN; -Bacitracin Zinc Ointment 30 gm TUBE ONE; -Bisacodyl 10 MG SUPP PR PRN; -CEFAZOLIN 2 GM/50 ML BAG ONE; -Dexamethasone 20 MG/5 ML VIAL ONE; -Fentanyl 100 MCG/2 ML VIAL ONE; -Fleet Enema 133 ML BOT PR PRN; -Glycopyrrolate 0.2 MG/ML 5 ML SYRINGE ONE; -HYDROcodone/Acetaminophen 7.5/325 mg Tablet PO PRN; -Ibuprofen 200 MG TAB PO PRN; -Lidocaine 1% PF 5 ML VIAL ONE; -Mag-Al 1200 mg/1200 mg/30 ML UDCUP PO PRN; -Milk Of Magnesia 30 ML UDCUP PO PRN; -Morphine 2 MG/ML SYRINGE ONE; -Morphine 4 MG/ML VIAL ONE; -Morphine 4 MG/ML VIAL SLOW IVP PRN; -Morphine Sulfate 2 MG/ML SYRINGE SLOW IVP PRN; -Non-Formulary Medication 1 EACH PO PRN; -Ondansetron HCl/PF 4 MG/2 ML Vial IVP PRN; -Ondansetron PF 4 MG/2 ML Vial ONE; -PHENYLEPHRINE-NS 100 MCG/ML 10 ML SYRINGE ONE; -PROPOFOL 200 MG/20 ML VIAL ONE; -Phenylephrine HCL 10 MG/ML VIAL ONE; +Piperacillin/Tazobactam 3.375 GM in Sodium Chloride 0.9% 100 ML IVPB SCH; -Promethazine HCl 25 MG/ML VIAL IM PRN; -Promethazine HCl 25 MG/ML VIAL IM/IV PRN; -Promethazine HCl 25 MG/ML VIAL ONE; -Sodium Chloride 0.9% 1,000 ML IV SCH; -Sodium Chloride 0.9% 10 ML ONE; -Thrombin 5000 UNITS/5 ML VIAL ONE; -traMADol HCl 50 MG TAB PO PRN
[2020-10-18] MEDS ORDERED: Piperacillin/Tazobactam 3.375 GM VIAL ONE (08:03)
[2020-10-18] MEDS ORDERED: Sodium Chloride 0.9% 100 ML ONE (08:04)
[2020-10-18] MEDS ORDERED: Cefepime 1 GM in Sodium Chloride 0.9% 100 ML IVPB SCH (08:30)
[2020-10-18] MEDS ORDERED: Iothalamate Meglumine 60% 50 ML VIAL FS ONE (09:42)
[2020-10-18] MEDS ORDERED: Fentanyl 100 MCG/2 ML VIAL ONE (09:44)
[2020-10-18] MEDS ORDERED: ePHEDrine 50 MG/ML VIAL ONE (10:04)
[2020-10-18] MEDS ORDERED: PROPOFOL 200 MG/20 ML VIAL ONE (10:04)
[2020-10-18] MEDS ORDERED: Ondansetron PF 4 MG/2 ML Vial ONE (10:04)
[2020-10-18] MEDS ORDERED: Lidocaine 1% PF 5 ML VIAL ONE (10:04)
[2020-10-18] MEDS ORDERED: Dexamethasone 20 MG/5 ML VIAL ONE (10:04)
[2020-10-18] MEDS ORDERED: Phenazopyridine HCl 100 MG TAB ONE (11:11)
== END 2020-10-18 14:30 | disposition home or self-care (01) ==
LOC: SDC 07:54
PROVIDERS: ATTEND Urology
PROC: 0TBB8ZX Excision of Bladder, Via Natural or Artificial Opening Endoscopic, Diagnostic (ICD-10-PCS; principal; 2020-10-18)
DX: N30.21 Other chronic cystitis with hematuria (principal); N30.41 Irradiation cystitis with hematuria; N32.89 Other specified disorders of bladder; N39.41 Urge incontinence; N95.2 Postmenopausal atrophic vaginitis; I10 Essential (primary) hypertension; E78.2 Mixed hyperlipidemia; M15.0 Primary generalized (osteo)arthritis; Z87.440 Personal history of urinary (tract) infections; Z87.891 Personal history of nicotine dependence; Z79.1 Long term (current) use of non-steroidal anti-inflammatories (NSAID); Z79.899 Other long term (current) drug therapy; Z88.1 Allergy status to other antibiotic agents; Z88.2 Allergy status to sulfonamides
CPT/HCPCS: 74420; 88305; J0692; J1100; J2405; J2543; J2704; J3010; J3490; Q9961

== ENCOUNTER 2021-01-04 15:22 | Outpatient (CLI) | payer MEDICARE | END 2021-01-04 15:23 | disposition home or self-care (01) | LOC: BICULT 15:22 | PROVIDERS: ATTEND Urology | DX: N39.41 Urge incontinence (principal); N28.9 Disorder of kidney and ureter, unspecified; R39.14 Feeling of incomplete bladder emptying; Z87.440 Personal history of urinary (tract) infections | CPT/HCPCS: 76770; 76856 ==

== ENCOUNTER → 2023-03-13 | Day surgery (SDC) | payer MEDICARE ==
[~2023-03-13] MED LIST changes: +Lidocaine 1% PF 5 ML VIAL ONE; +Midazolam HCl 2 mg/2 ml Vial ONE; -Piperacillin/Tazobactam 3.375 GM in Sodium Chloride 0.9% 100 ML IVPB SCH; +Sodium Bicarbonate 2.5 MEQ/5 ML VIAL ONE; +fentaNYL 50 mcg/mL 1 mL Vial ONE
[2023-03-13 07:14] LABS: Hematocrit 30.7 % (36.0-47.0); Hemoglobin 9.8 g/dL (12.0-16.0); Manual Diff?? YES; Mean Corpuscular HGB CONC 31.9 g/dL (32.0-36.0); Mean Corpuscular Hemoglobin 31.3 pg (27.0-31.0); Mean Corpuscular Volume 98.1 fl (78.0-98.0); Mean Platelet Volume 10.3 fL (7.4-10.4); Platelet Count 424 10x3/uL (130-400); RBC Distribution Width 17.7 % (11.5-14.5); Red Blood Cell (RBC) Count 3.13 mill/uL (4.20-5.40)
[2023-03-13 07:17] LABS: Delete Auto Diff?? YES
[2023-03-13 07:40] LABS: INR-International Normal Ratio 0.9; PTT 25.3 sec (22.9-36.1); Prothrombin Time 12.3 sec (12.0-14.7)
[2023-03-13 07:59] LABS: Band 2 % (5-11); Burr Cells MODERATE= 6-15 cells HPF (0-1); CellaVision Operator ID LAB.GE; Eosinophils 12 % (0-10); Large Platelets 10.5 % (0-5); Lymphocytes 31 % (21-51); Monocytes 15 % (0-10); Neutrophil 34 % (42-75); Ovalocytes SLIGHT = 2-5 cells HPF (0-1); Platelet Adequacy Comment Platelets Increased; Polychromasia SLIGHT = 2-3 cells HPF (0-2); Reactive Lymphocytes 2 % (0-10); Total Cell Count 105
== END ==
LOC: SPEC 06:46
PROVIDERS: ATTEND Urology
DX: N39.41 Urge incontinence (principal); Z53.9 Procedure and treatment not carried out, unspecified reason; N13.30 Unspecified hydronephrosis; R39.14 Feeling of incomplete bladder emptying; R35.0 Frequency of micturition; I10 Essential (primary) hypertension; R33.9 Retention of urine, unspecified; R31.0 Gross hematuria; E78.5 Hyperlipidemia, unspecified; M19.90 Unspecified osteoarthritis, unspecified site; K21.9 Gastro-esophageal reflux disease without esophagitis; N28.9 Disorder of kidney and ureter, unspecified; N30.40 Irradiation cystitis without hematuria; Z88.8 Allergy status to other drugs, medicaments and biological substances; Z88.1 Allergy status to other antibiotic agents; Z79.899 Other long term (current) drug therapy
CPT/HCPCS: 74150; 85025; 85610; 85730; J2250; J3010